=== PATIENT | female | born 2000 | race Caucasian/White ===

== ENCOUNTER 2024-08-16 12:25 | Emergency (ER) | payer OTHER, SELFPAY ==
[2024-08-16 12:43] VITALS: BP 126/78; PULSE 85; RESP 16; TEMP 36.1; O2SAT 100
--- NOTE | 2024-08-16 14:07 | ED_ITS ---
HPI - Wound/Laceration General Chief Complaint: Wound/Laceration Stated Complaint: SUTURE REMOVAL Time Seen by Provider: 08/16/24 13:30 Source: patient, RN notes reviewed and old records reviewed Mode of arrival: ambulatory Limitations: no limitations History of Present Illness HPI narrative: 24 year old female presents to express care with complaints of retained suture to incision line on forehead from surgical procedure she had done 07/01/2024 in [facility] by plastic surgeon there. Patient reports that she has called her surgeon and was told to go urgent care and have it removed.Patient has well healed incision line across hairline with small red raised area on right side of incision line, no drainage from area noted. Patient reports no fevers, chills or ill symptoms. Onset (ago): week(s) (surgery 07/01/2024) Location: face (along right side of hairline incsion line) Treatments prior to arrival: other (antibiotic ointment) Related Data Home Medications ?Medication ?Instructions ?Recorded ?Confirmed ?Last Taken ?Type estradiol 2 mg tablet mg 08/16/24 Unknown History progesterone micronized 100 mg mg 08/16/24 Unknown History capsule spironolactone 50 mg tablet mg 08/16/24 Unknown History Allergies Allergy/AdvReac Type Severity Reaction Status Date / Time No Known Allergies Allergy Verified 08/16/24 12:45 Review of Systems Review of Systems: CONSTITUTIONAL: Denies fever, chills, or sweats. EYES: Denies visual changes, redness, or discharge. ENT: Denies rhinorrhea, congestion, sore throat, or otalgia. CARDIOVASCULAR: Denies chest pain, palpitations, or edema. RESPIRATORY: Denies cough or dyspnea. GASTROINTESTINAL: Denies abdominal pain, nausea, vomiting, or diarrhea. GENITOURINARY: Denies dysuria or hematuria. SKIN: Denies rash or itching. small red raised area on the right side of incision line with what appears to be retained suture MUSCULOSKELETAL: Denies back pain, joint pain, or myalgia. NEUROLOGIC: Denies headache, numbness, or weakness. PSYCHIATRIC: Denies anxiety or depression. All systems reviewed & are unremarkable except as noted in HPI and below PMFSH Surgical History Surgical History (Updated 08/19/24 @ 07:45 by Melia Santoro NP) Hx of plastic surgery hairline reduction surgery 07/01/2024 History of breast augmentation Social History Social History (Updated 08/19/24 @ 07:46 by Melia Santoro NP) Smoking status: Never smoker Alcohol intake: current Alcohol use details: social Substance use type: does not use Living arrangements: with family Gender identity (if verbalized by the patient): Female Comments At time of signature, agree with nursing past medical, surgical, social and family history. There is no relevant family history pertinent to the presenting complaint Exam Narrative: GENERAL: Well-appearing, well-nourished, and in no acute distress. HEAD: Normocephalic, atraumatic. EYES: PERRLA and EOMI. ENT: Nares clear, no rhinorrhea or epistaxis. Mucous membranes moist. NECK: Supple.no lymphadenopathy CHEST: Clear to auscultation. No respiratory distress.SAO2 100% on room air HEART: Regular rate and rhythm. No murmur heard. Normal peripheral pulses. ABDOMEN: Soft, nontender, nondistended, normal active bowel sounds. EXTREMITIES: Normal range of motion. No edema. SKIN: Warm, dry, no rash. small raised red area to the right side of hairline incision area with what appears as retained suture, NEURO: No focal deficits. Alert and oriented x3. Course Course Emergency Course: Patient is aware of diagnosis, understands and agrees to treatment plan.? Anticipatory guidance given.? Patient agrees to follow-up as directed and is aware of reasons to seek care at the emergency department. Portions of this record may have been created with voice recognition software Level of Care: Express Care Visit Vital Signs Vital signs: Vital Signs Temperature 36.1 C L 08/16/24 12:43 Pulse Rate 85 08/16/24 12:43 Respiratory Rate 16 08/16/24 12:43 Blood Pressure 126/78 08/16/24 12:43 Pulse Oximetry 100 08/16/24 12:43 Temperature 36.1 C L 08/16/24 12:43 Pulse Rate 85 08/16/24 12:43 Respiratory Rate 16 08/16/24 12:43 Blood Pressure 126/78 08/16/24 12:43 Pulse Oximetry 100 08/16/24 12:43 Reviewed Procedures Other Procedure Procedure 1: Other Procedure: small red raised area to right hairline incision line cleansed with chlorhexidine wipes and using sterile forceps area probed and small black piece of retained suture removed, no purulent drainage from area.Area cleansed with wound cleanser and saline and triple antibiotic ointment applied, left open to air. Critical Care Time Critical Care Time Critical Care Time: No Discharge Plan Discharge Clinical Impression: Retained suture Qualifiers: Encounter type: initial encounter Qualified Code(s): T81.89XA - Other complications of procedures, not elsewhere classified, initial encounter Patient Disposition: Home, Self-Care Condition: Stable Instructions: Antibiotic Form Additional Instructions: cleanse area forehead twice daily with liquid Dial soap Bactroban ointment watch for increasing infection--redness, swelling, drainage Tylenol or ibuprofen for fever pain follow up with PCP in 7-10 days for a wound check recheck if develop fever, chills, increasing symptom Go to the ER if your symptoms become worse of if ANY new symptoms develop If your symptoms persist, change or worsen significantly before you can contact your personal physician then please, without delay, go to the emergency department for further evaluation. Follow-up with PCP in 7-10 days or sooner if needed Follow up with PCP soon in regards to your blood pressure which is elevated above threshold for referral. Blood pressure above 120/80 may indicate pre- hypertension. minimal elevation of 126/78 Patient Language: Macedonian Prescriptions: New mupirocin [Centany] 2 % ointment 1 applic topical BID Qty: 22 0RF No Action estradiol 2 mg tablet spironolactone 50 mg tablet progesterone micronized 100 mg capsule Follow-up/Referrals: Gumaro,Mora [Other] Time of Disposition: 14:10 Quality Lizbeth Coma Scale Eyes: Open Verbal: Oriented and Alert Motor: Follows Commands [place] Coma Total Score: 15
== END 2024-08-16 14:15 | disposition home or self-care (01) ==
PROVIDERS: Emergency Provider Registered Nurse
DX: T81.89XA Other complications of procedures, not elsewhere classified, initial encounter (principal)
CPT/HCPCS: 99213; G0463